=== PATIENT | female | born 1955 | race Caucasian/White ===

== ENCOUNTER 2016-05-19 12:48 | Emergency (ER) | payer BC, OTHER ==
[2016-05-19] MEDS ORDERED: predniSONE 20 MG Tab PO ONE (13:09)
[2016-05-19] MEDS ORDERED: Albuterol/Ipratropium 3.0-0.5 MG/3 ML Neb Soln NEB ONE (13:09)
--- NOTE | 2016-05-19 13:52 | CR ---
EXAMINATION: Two-view chest (PA and Lateral views). HISTORY: Shortness of breath. FINDINGS: The trachea is midline. The cardiomediastinal silhouette is within normal limits. No pulmonary infil trates, effusions or pneumothorax. There is a moderate hiatal hernia. Osseous structures appear unremarkable. IMPRESSION: No acute cardiopulmonary process.
--- NOTE | 2016-05-19 14:11 | EDM.PDOC ---
ED HISTORY OF PRESENT ILLNESS - General Chief Complaint: Respiratory Problem Stated Complaint: POSSIBLE PNEUMONIA Time Seen by Provider: 05/19/16 12:51 Source of Information: Reports: Patient History Limitations: Reports: No limitations - History of Present Illness INITIAL COMMENTS - FREE TEXT/NARRATIVE: History of present illness: [] Patient's head 2 week history of a cough it is not getting better. She has seen her primary care physician who put her on albuterol and a for antibiotic without any improvement. Patient states when she puts her neck forward she can' t breathe. Had no syncope denies any sore throat or fevers or chills. Review of systems: As per history of present illness and below otherwise all systems reviewed and negative. Past medical history: As per history of present illness and as reviewed below otherwise noncontributory. Surgical history: As per history of present illness and as reviewed below otherwise noncontributory. Social history: No reported history of drug or alcohol abuse. Family history: As per history of present illness and as reviewed below otherwise noncontributory. Physical exam: General: Well developed, well nourished in NAD HEENT: Atraumatic, normocephalic, pupils reactive, negative for conjunctival pallor or scleral icterus, mucous membranes moist, throat clear, neck supple, nontender, trachea midline. Lungs: Clear to auscultation, breath sounds equal bilaterally, chest nontender. Heart: S1S2, regular, negative for clicks, rubs, or JVD. Abdomen: Soft, nondistended, nontender. Negative for masses or hepatosplenomegaly. Negative for costovertebral tenderness. Pelvis: Stable nontender. Genitourinary: Deferred. Rectal: Deferred. Extremities: Atraumatic, negative for cords or calf pain. Neurovascular unremarkable. Neuro: Awake, alert, oriented. Cranial nerves II through XII unremarkable. Cerebellum unremarkable. Motor and sensory unremarkable throughout. Exam nonfocal. Diagnostics: [] Chest x-ray negative for known Therapeutics: [] DuoNeb given in the ED with improvement Impression: [] Bronchitis Plan: [] Combivent prednisone followup PMD Definitive disposition and diagnosis as appropriate pending reevaluation and review of above. - Related Data Allergies/ADRs: Allergies Allergy/AdvReac Type Severity Reaction Status Date / Time Penicillins Allergy Rash Verified 11/14/15 19:29 Some adhesives Allergy Itching Uncoded 11/14/15 19:29 Home Meds: Home Meds Insulin Detemir [Levemir] 1 injection SQ BID 03/27/14 [History] Insulin Lispro [HumaLOG] 1 injection SQ ASDIRECTED 03/27/14 [History] Levothyroxine [Synthroid] 50 mcg PO ACBREAKFAST 03/27/14 [History] Moexipril [Univasc] 15 mg PO BID 03/27/14 [History] amLODIPine [Norvasc] 10 mg PO ACBREAKFAST 03/27/14 [History] Calcium Citrate/Vitamin D3 [Citracal-Vit D 200 mg-250 Tab] 2 tab.chew PO DAILY 10/04/14 [History] Omeprazole [Prilosec] 1 tab PO DAILY 10/04/14 [History] Aspirin [[place] Aspirin] 81 mg PO DAILY 12/24/15 [History] Dulaglutide [Trulicity] 1.5 mg SUBCUT WEEKLY 12/24/15 [History] Empagliflozin [Jardiance] 25 mg PO DAILY 12/24/15 [History] Acetaminophen/HYDROcodone [[place] 325-5 MG] 1 tab PO Q4H PRN #30 tablet 12/27/15 [Rx] Ipratropium/Albuterol Sulfate [Combivent Respimat Inhal [place]] 4 gm IH ASDIRECTED PRN #1 aer.w.adap 05/19/16 [Rx] predniSONE [Prednisone] 40 mg PO DAILY #10 tablet 05/19/16 [Rx] Past Medical History HEENT History: Reports: Sinusitis Cardiovascular History: Reports: High cholesterol, Hypertension Respiratory History: Reports: Other (see below) Other Respiratory History: hx of bronchitis Gastrointestinal History: Reports: GERD Genitourinary History: Reports: None 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 Musculoskeletal History: Reports: Fracture, Osteoarthritis Other Musculoskeletal History: Severe to Left wrist with ORIF and fixator for extended time Neurological History: Reports: None, Neuropathy, diabetic Psychiatric History: Reports: None Endocrine/Metabolic History: Reports: Diabetes, type II, Hypothyroidism, Obesity /BMI 30+ Hematologic History: Reports: None Immunologic History: Reports: None Oncologic (Cancer) History: Reports: None Dermatologic History: Reports: None - Infectious Disease History Infectious Disease History: Reports: None - Past Surgical History Head Surgeries/Procedures: Reports: None HEENT Surgical History: Reports: Cataract surgery Other HEENT Surgeries/Procedures: Bilateral Cataracts with lens replacements GI Surgical History: Reports: Cholecystectomy, Colonoscopy Other GI Surgeries/Procedures: Open Katiana age 13 yrs Musculoskeletal Surgical History: Reports: Arthroscopic knee, Other (see below) Other Musculoskeletal Surgeries/Procedures:: ORIF Left Wrist, Left knee arthroscopy, bilateral Hammer toe repairs with hardware Social & Family History - Tobacco Use Smoking Status *Q: Current Every Day Smoker Years of Tobacco use: 20 Packs/Tins Daily: 0.5 - Caffeine Use Caffeine Use: Reports: Other - Alcohol Use Days Per Week of Alcohol Use: 0 - Recreational Drug Use Recreational Drug Use: No Drug Use in Last 12 Months: No ED ROS GENERAL - Review of Systems Review Of Systems: See Below (See history of present illness) ED EXAM, GENERAL - Physical Exam Exam: See Below (See history of present illness) Course - Vital Signs Last Recorded V/S: Last Vital Signs Temp 36.6 C 05/19/16 12:59 Pulse 84 05/19/16 12:59 Resp 18 05/19/16 12:59 BP 150/66 H 05/19/16 12:59 Pulse Ox 98 05/19/16 12:59 - Orders/Labs/Meds Orders: Active Orders 24 hr Category Date Time Status RT Aerosol Therapy [RC] ASDIRECTED Care 05/19/16 13:09 Active Meds: Medications Discontinued Medications Generic Name Dose Route Start Last Admin Trade Name Freq PRN Reason Stop Dose Admin Albuterol/Ipratropium 3 ml 05/19/16 13:09 05/19/16 13:18 Duoneb 3.0-0.5 Mg/3 Ml NEB 05/19/16 13:10 3 ml ONETIME ONE Administration Prednisone 60 mg 05/19/16 13:09 05/19/16 13:25 Prednisone PO 05/19/16 13:10 60 mg ONETIME ONE Administration Departure - Departure Time of Disposition: 14:10 Disposition: Home, Self-Care 01 Condition: good Clinical Impression: Bronchitis Forms: ED Department Discharge Additional Instructions: The following information is given to patients seen in the emergency department who are being discharged to home. This information is to outline your options for follow-up care. We provide all patients seen in our emergency department with a follow-up referral. The need for follow-up, as well as the timing and circumstances, are variable depending upon the specifics of your emergency department visit. If you don't have a primary care physician on staff, we will provide you with a referral. We always advise you to contact your personal physician following an emergency department visit to inform them of the circumstance of the visit and for follow-up with them and/or the need for any referrals to a consulting specialist. The emergency department will also refer you to a specialist when appropriate. This referral assures that you have the opportunity for follow-up care with a specialist. All of these measure are taken in an effort to provide you with optimal care, which includes your follow-up. Under all circumstances we always encourage you to contact your private physician who remains a resource for coordinating your care. When calling for follow-up care, please make the office aware that this follow-up is from your recent emergency room visit. If for any reason you are refused follow-up, please contact the [facility] Emergency Department at and asked to speak to the emergency department charge nurse. miranda Brady [facility] [address] [place] [id number] - My Orders Last 24 Hours: My Active Orders 05/19/16 13:09 RT Aerosol Therapy [RC] ASDIRECTED - Assessment/Plan Last 24 Hours: My Active Orders 05/19/16 13:09 RT Aerosol Therapy [RC] ASDIRECTED
[2016-05-19 14:28] VITALS: BP 138/66
== END 2016-05-19 14:23 | disposition home or self-care (01) ==
LOC: MW.ED 12:48
DX: J40 Bronchitis, not specified as acute or chronic (principal); E78.00 Pure hypercholesterolemia, unspecified; I10 Essential (primary) hypertension; K21.9 Gastro-esophageal reflux disease without esophagitis; M19.90 Unspecified osteoarthritis, unspecified site; E03.9 Hypothyroidism, unspecified; E66.9 Obesity, unspecified; E11.40 Type 2 diabetes mellitus with diabetic neuropathy, unspecified; F17.210 Nicotine dependence, cigarettes, uncomplicated; Z79.4 Long term (current) use of insulin; Z79.82 Long term (current) use of aspirin; Z79.899 Other long term (current) drug therapy; Z98.49 Cataract extraction status, unspecified eye; Z90.49 Acquired absence of other specified parts of digestive tract
CPT/HCPCS: 71020; 94664; 99283; A9270; 99284

== ENCOUNTER 2018-09-24 08:08 | Day surgery (SDC) | payer BC ==
[2018-09-24] MEDS ORDERED: Sodium Chloride 0.9% 1,000 ML IV ONE (08:19)
[2018-09-24] MEDS ORDERED: Glucagon,Human Recombinant 1 MG Vial IVPUSH ONE (08:20)
--- NOTE | 2018-09-24 08:23 | EDM.PDOC ---
ED HPI GENERAL MEDICAL PROBLEM - General Chief Complaint: ENT Problem Stated Complaint: THROAT COMPLAINT Time Seen by Provider: 09/24/18 08:13 - History of Present Illness INITIAL COMMENTS - FREE TEXT/NARRATIVE: HISTORY AND PHYSICAL: History of present illness: Patient is a 63-year-old white female presents with a concern of inability to swallow patient has had similar episodes in the past she states this began yesterday when she was eating chicken she states she did have one episode of emesis and thought it clear but is not been able tolerate any by mouth liquids or saliva since she states she's had similar symptoms in the past and had endoscopy approximately 3-5 years prior that was reported to be unremarkable. Review of systems: As per history of present illness and below otherwise all systems reviewed and negative. Past medical history: As per history of present illness and as reviewed below otherwise noncontributory. Surgical history: As per history of present illness and as reviewed below otherwise noncontributory. Social history: No reported history of drug or alcohol abuse. Family history: As per history of present illness and as reviewed below otherwise noncontributory. Physical exam: HEENT: Atraumatic, normocephalic, pupils reactive, negative for conjunctival pallor or scleral icterus, mucous membranes moist, throat clear, neck supple, nontender, trachea midline. Lungs: Clear to auscultation, breath sounds equal bilaterally, chest nontender. Heart: S1S2, regular, negative for clicks, rubs, or JVD. Abdomen: Soft, nondistended, nontender. Negative for masses or hepatosplenomegaly. Negative for costovertebral tenderness. Pelvis: Stable nontender. Genitourinary: Deferred. Rectal: Deferred. Extremities: Atraumatic, negative for cords or calf pain. Neurovascular unremarkable. Neuro: Awake, alert, oriented. Cranial nerves II through XII unremarkable. Cerebellum unremarkable. Motor and sensory unremarkable throughout. Exam nonfocal. Diagnostics: CBC CMP chest x-ray PT/INR Therapeutics: Saline 1 L bolus glucagon 1 mg IV Impression: #1 odynophagia probable food bolus Definitive disposition and diagnosis as appropriate pending reevaluation and review of above. Throat Pain Score (Numeric/FACES): 7 - Related Data Allergies Allergy/AdvReac Type Severity Reaction Status Date / Time Penicillins Allergy Rash Verified 11/14/15 19:29 Some adhesives Allergy Itching Uncoded 11/14/15 19:29 Home Meds: Home Meds Insulin Detemir [Levemir] 1 injection SQ BID 03/27/14 [History] Insulin Lispro [HumaLOG] 1 injection SQ ASDIRECTED 03/27/14 [History] Levothyroxine [Synthroid] 50 mcg PO ACBREAKFAST 03/27/14 [History] Moexipril [Univasc] 15 mg PO BID 03/27/14 [History] amLODIPine [Norvasc] 10 mg PO ACBREAKFAST 03/27/14 [History] Calcium Citrate/Vitamin D3 [Citracal-Vit D 200 mg-250 Tab] 2 tab.chew PO DAILY 10/04/14 [History] Omeprazole [Prilosec] 1 tab PO DAILY 10/04/14 [History] Aspirin [[place] Aspirin EC] 81 mg PO DAILY 12/24/15 [History] Dulaglutide [Trulicity] 1.5 mg SUBCUT WEEKLY 12/24/15 [History] Empagliflozin [Jardiance] 25 mg PO DAILY 12/24/15 [History] Acetaminophen/HYDROcodone [[place] 325-5 MG] 1 tab PO Q4H PRN #30 tablet 12/27/15 [Rx] Ipratropium/Albuterol Sulfate [Combivent Respimat Inhal [place]] 4 gm IH ASDIRECTED PRN #1 aer.w.adap 05/19/16 [Rx] predniSONE [Prednisone] 40 mg PO DAILY #10 tablet 05/19/16 [Rx] Past Medical History HEENT History: Reports: Sinusitis Cardiovascular History: Reports: High Cholesterol, Hypertension Respiratory History: Reports: Other (See Below) Other Respiratory History: hx of bronchitis Gastrointestinal History: Reports: GERD Genitourinary History: Reports: 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 Musculoskeletal History: Reports: Fracture, Osteoarthritis Other Musculoskeletal History: Severe to Left wrist with ORIF and fixator for extended time Neurological History: Reports: None, Neuropathy, Diabetic Psychiatric History: Reports: None Endocrine/Metabolic History: Reports: Diabetes, Type II, Hypothyroidism, Obesity /BMI 30+ Hematologic History: Reports: None Immunologic History: Reports: None Oncologic (Cancer) History: Reports: None Dermatologic History: Reports: None - Infectious Disease History Infectious Disease History: Reports: None - Past Surgical History Head Surgeries/Procedures: Reports: None HEENT Surgical History: Reports: Cataract Surgery GI Surgical History: Reports: Cholecystectomy, Colonoscopy Other GI Surgeries/Procedures: Open Katiana age 13 yrs Musculoskeletal Surgical History: Reports: Arthroscopic Knee, Other (See Below) Social & Family History - Caffeine Use Caffeine Use: Reports: Other ED ROS GENERAL - Review of Systems Review Of Systems: ROS reveals no pertinent complaints other than HPI. ED EXAM, GENERAL - Physical Exam Exam: See Below (See dictation) Course - Vital Signs Last Recorded V/S: Last Vital Signs Temp 36.0 C 09/24/18 08:18 Pulse 85 09/24/18 08:18 Resp 20 09/24/18 08:18 BP 134/77 09/24/18 08:18 Pulse Ox 97 09/24/18 08:18 - Orders/Labs/Meds Orders: Active Orders 24 hr Category Date Time Status Chest 1V Frontal [CR] Stat Exams 09/24/18 08:19 Ordered CBC WITH AUTO DIFF [HEME] Stat Lab 09/24/18 08:19 Ordered COMPREHENSIVE METABOLIC PN,CMP [CHEM] Stat Lab 09/24/18 08:19 Ordered INR,PT,PROTHROMBIN TIME [COAG] Stat Lab 09/24/18 08:19 Ordered Glucagon,Human Recombinant [GlucaGen] Med 09/24/18 08:20 Once 1 mg IVPUSH ONETIME ONE Sodium Chloride 0.9% [Normal Saline] 1,000 ml Med 09/24/18 08:19 Ordered IV STAT Departure - Departure Time of Disposition: 08:22 Disposition: Still A Patient 30 Condition: Good Clinical Impression: Odynophagia - Discharge Information Referrals: PCP,Unknown [Primary Care Provider] - - My Orders Last 24 Hours: My Active Orders 09/24/18 08:19 Chest 1V Frontal [CR] Stat CBC WITH AUTO DIFF [HEME] Stat COMPREHENSIVE METABOLIC PN,CMP [CHEM] Stat INR,PT,PROTHROMBIN TIME [COAG] Stat Sodium Chloride 0.9% [Normal Saline] 1,000 ml IV STAT 09/24/18 08:20 Glucagon,Human Recombinant [GlucaGen] 1 mg IVPUSH ONETIME ONE - Assessment/Plan Last 24 Hours: My Active Orders 09/24/18 08:19 Chest 1V Frontal [CR] Stat CBC WITH AUTO DIFF [HEME] Stat COMPREHENSIVE METABOLIC PN,CMP [CHEM] Stat INR,PT,PROTHROMBIN TIME [COAG] Stat Sodium Chloride 0.9% [Normal Saline] 1,000 ml IV STAT 09/24/18 08:20 Glucagon,Human Recombinant [GlucaGen] 1 mg IVPUSH ONETIME ONE
--- NOTE | 2018-09-24 08:42 | PCM.HP.2 ---
H&P History of Present Illness - General Date of Service: 09/24/18 Source of Information: Patient History Limitations: Reports: No Limitations - History of Present Illness Initial Comments - Free Text/Narative: Patient is a 63 year old female who presents with retrosternal burning, dysphagia, and vomiting. She has a history of intermittent dysphagia that has been getting worse. She had an EGD three years ago with Dr. Pino and was found to have a hiatal hernia. She doesn't take anything for reflux. She was eating chicken last night when it became stuck. She vomited and felt like she was able to get the food bolus out, however this morning she is having sternal chest pain with swallowing and cannot even swallow spit. She tried some water but vomited. Throat Pain Score (Numeric/FACES): 7 - Related Data Allergies/Adverse Reactions: Allergies Allergy/AdvReac Type Severity Reaction Status Date / Time Penicillins Allergy Rash Verified 11/14/15 19:29 Some adhesives Allergy Itching Uncoded 11/14/15 19:29 Home Medications: Home Meds Insulin Detemir [Levemir] 1 injection SQ BID 03/27/14 [History] Insulin Lispro [HumaLOG] 1 injection SQ ASDIRECTED 03/27/14 [History] Levothyroxine [Synthroid] 50 mcg PO ACBREAKFAST 03/27/14 [History] Moexipril [Univasc] 15 mg PO BID 03/27/14 [History] amLODIPine [Norvasc] 10 mg PO ACBREAKFAST 03/27/14 [History] Calcium Citrate/Vitamin D3 [Citracal-Vit D 200 mg-250 Tab] 2 tab.chew PO DAILY 10/04/14 [History] Omeprazole [Prilosec] 1 tab PO DAILY 10/04/14 [History] Aspirin [[place] Aspirin EC] 81 mg PO DAILY 12/24/15 [History] Dulaglutide [Trulicity] 1.5 mg SUBCUT WEEKLY 12/24/15 [History] Empagliflozin [Jardiance] 25 mg PO DAILY 12/24/15 [History] Acetaminophen/HYDROcodone [[place] 325-5 MG] 1 tab PO Q4H PRN #30 tablet 12/27/15 [Rx] Ipratropium/Albuterol Sulfate [Combivent Respimat Inhal [place]] 4 gm IH ASDIRECTED PRN #1 aer.w.adap 05/19/16 [Rx] predniSONE [Prednisone] 40 mg PO DAILY #10 tablet 05/19/16 [Rx] Past Medical History HEENT History: Reports: Sinusitis Cardiovascular History: Reports: High Cholesterol, Hypertension Respiratory History: Reports: Other (See Below) Other Respiratory History: hx of bronchitis Gastrointestinal History: Reports: GERD, Other (See Below) Other Gastrointestinal History: difficulty swallowing. 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 Musculoskeletal History: Reports: Fracture, Osteoarthritis Other Musculoskeletal History: Severe to Left wrist with ORIF and fixator for extended time Neurological History: Reports: None, Neuropathy, Diabetic Psychiatric History: Reports: None Endocrine/Metabolic History: Reports: Diabetes, Type II, Hypothyroidism, Obesity /BMI 30+ Hematologic History: Reports: B12 Deficiency, Iron Deficiency Immunologic History: Reports: None Oncologic (Cancer) History: Reports: None Dermatologic History: Reports: None - Infectious Disease History Infectious Disease History: Reports: None - Past Surgical History Head Surgeries/Procedures: Reports: None HEENT Surgical History: Reports: Cataract Surgery GI Surgical History: Reports: Cholecystectomy, Colonoscopy Other GI Surgeries/Procedures: Open Katiana age 13 yrs Musculoskeletal Surgical History: Reports: Arthroscopic Knee, Other (See Below) Social & Family History - Tobacco Use Smoking Status *Q: Light Tobacco Smoker Years of Tobacco use: 0 Packs/Tins Daily: 0 - Caffeine Use Caffeine Use: Reports: Other - Recreational Drug Use Recreational Drug Use: No H&P Review of Systems - Review of Systems: Review Of Systems: ROS reveals no pertinent complaints other than HPI. Exam - Exam Exam: See Below - Vital Signs Vital Signs: Last Vital Signs Temp 36.0 C 09/24/18 08:18 Pulse 85 09/24/18 08:18 Resp 20 09/24/18 08:18 BP 134/77 09/24/18 08:18 Pulse Ox 97 09/24/18 08:18 Weight: 113.398 kg - Exam Quality Assessment: Supplemental Oxygen General: Alert, Oriented, Mild Distress HEENT: Conjunctiva Clear, Mucosa Moist & [place], Posterior Pharynx Clear Neck: Supple, Trachea Midline Lungs: Clear to Auscultation, Normal Respiratory Effort Cardiovascular: Regular Rate, Regular Rhythm GI/Abdominal Exam: Soft, Non-Tender, No Distention, No Mass - Patient Data Lab Results Last 24 hrs: Laboratory Results - last 24 hr 09/24/18 Range/Units 08:34 POC Glucose 78 (60-110) mg/dL - Problem List (1) Hiatal hernia SNOMED Code(s): 66638948 ICD Code: K44.9 - DIAPHRAGMATIC HERNIA WITHOUT OBSTRUCTION OR GANGRENE Status: Acute Current Visit: Yes (2) Esophageal obstruction due to food impaction SNOMED Code(s): 177999992 ICD Code: K22.2 - ESOPHAGEAL OBSTRUCTION; T18.128A - FOOD IN ESOPHAGUS CAUSING OTHER INJURY, INITIAL ENCOUNTER Status: Acute Current Visit: Yes Problem List Initiated/Reviewed/Updated: Yes Orders Last 24hrs: Active Orders 24 hr Category Date Time Status Chest 1V Frontal [CR] Stat Exams 09/24/18 08:19 Ordered CBC WITH AUTO DIFF [HEME] Stat Lab 09/24/18 08:19 Ordered COMPREHENSIVE METABOLIC PN,CMP [CHEM] Stat Lab 09/24/18 08:19 Ordered INR,PT,PROTHROMBIN TIME [COAG] Stat Lab 09/24/18 08:19 Ordered Sodium Chloride 0.9% [Normal Saline] 1,000 ml Med 09/24/18 08:19 Active IV STAT Medication Orders Sodium Chloride (Normal Saline) 1,000 mls @ 999 mls/hr IV STAT ONE Stop: 09/24/18 09:19 Last Admin: 09/24/18 08:34 Dose: 999 mls/hr Assessment/Plan Comment:: Given her inability to swallow saliva I am concerned that she has a food bolus impaction. She has a history of a hiatal hernia and likely has GERD with esophagitis which is likely narrowing the area. I explained the need for a diagnostic EGD with food bolus extraction. She and I discussed the expected perioperative course as well as the risks including bleeding or perforation. She verbalized understanding and wishes to proceed.
[2018-09-24] MEDS ORDERED: Sodium Chloride 0.9% 2.5 ML Syringe FLUSH PRN (08:51)
[2018-09-24] MEDS ORDERED: Sodium Chloride 0.9% 10 ML SDV IV PRN (08:51)
[2018-09-24] MEDS ORDERED: Sodium Chloride 0.9% 10 ML Syringe FLUSH PRN (08:51)
[2018-09-24] MEDS ORDERED: Lidocaine 2% 5 ML SDV ONE (08:54)
[2018-09-24] MEDS ORDERED: Ondansetron 4 MG/2 ML SDV ONE (08:54)
[2018-09-24] MEDS ORDERED: Rocuronium 100 MG/10 ML Syringe ONE (08:55)
[2018-09-24] MEDS ORDERED: Propofol 200 MG/20 ML SDV ONE (08:55)
[2018-09-24] MEDS ORDERED: Midazolam 1 MG/ML 2 ML SDV ONE (08:55)
[2018-09-24] MEDS ORDERED: fentaNYL 250 MCG/5 ML SDV ONE (08:55)
[2018-09-24] MEDS ORDERED: Lactated Ringers 1,000 ML IV SCH (09:00)
--- NOTE | 2018-09-24 09:02 | PCM.PREANE ---
Preanesthetic Assessment - Anesthesia/Transfusion/Family Hx Anesthesia History: Prior Anesthesia Without Reaction Other Type of Anesthesia Reaction Comment: Denies any known problem in past Family History of Anesthesia Reaction: No Transfusion History: No Prior Transfusion(s) - Review of Systems General: No Symptoms Pulmonary: No Symptoms Cardiovascular: No Symptoms Gastrointestinal: No Symptoms Neurological: No Symptoms Other: Reports: None - Physical Assessment Vital Signs: Last Vital Signs Temp 96.8 F 09/24/18 08:18 Pulse 85 09/24/18 08:18 Resp 20 09/24/18 08:18 BP 134/77 09/24/18 08:18 Pulse Ox 97 09/24/18 08:18 Height: 5 ft 6 in Weight: 113.398 kg ASA Class: 2E Mental Status: Alert & Oriented x3 Airway Class: Mallampati = 2 Dentition: Reports: Normal Dentition, Missing Tooth/Teeth Thyro-Mental Finger Breadths: 3 Mouth Opening Finger Breadths: 3 ROM/Head Extension: Limited/Partial Lungs: Clear to Auscultation, Normal Respiratory Effort Cardiovascular: Regular Rate, Regular Rhythm - Lab Values: Laboratory Last Values WBC 7.52 K/uL (4.0-11.0) 09/24/18 08:37 RBC 5.18 M/uL (4.30-5.90) 09/24/18 08:37 Hgb 13.8 g/dL (12.0-16.0) 09/24/18 08:37 Hct 43.0 % (36.0-46.0) 09/24/18 08:37 MCV 83.0 fL (80.0-98.0) 09/24/18 08:37 MCH 26.6 pg (27.0-32.0) L 09/24/18 08:37 MCHC 32.1 g/dL (31.0-37.0) 09/24/18 08:37 RDW Std Deviation 46.8 fl (28.0-62.0) 09/24/18 08:37 RDW Coeff of Suhas 16 % (11.0-15.0) H 09/24/18 08:37 Plt Count 324 K/uL (150-400) 09/24/18 08:37 MPV 9.20 fL (7.40-12.00) 09/24/18 08:37 Neut % (Auto) 70.4 % (48.0-80.0) 09/24/18 08:37 Lymph % (Auto) 19.0 % (16.0-40.0) 09/24/18 08:37 [place] % (Auto) 8.9 % (0.0-15.0) 09/24/18 08:37 Eos % (Auto) 1.3 % (0.0-7.0) 09/24/18 08:37 Baso % (Auto) 0.4 % (0.0-1.5) 09/24/18 08:37 Neut # (Auto) 5.3 K/uL (1.4-5.7) 09/24/18 08:37 Lymph # (Auto) 1.4 K/uL (0.6-2.4) 09/24/18 08:37 Dillon # (Auto) 0.7 K/uL (0.0-0.8) 09/24/18 08:37 Eos # (Auto) 0.1 K/uL (0.0-0.7) 09/24/18 08:37 Baso # (Auto) 0.0 K/uL (0.0-0.1) 09/24/18 08:37 Nucleated RBC % 0.0 /100WBC 09/24/18 08:37 Nucleated RBCs # 0 K/uL 09/24/18 08:37 POC Glucose 78 mg/dL (60-110) 09/24/18 08:34 - Allergies Allergies/Adverse Reactions: Allergies Allergy/AdvReac Type Severity Reaction Status Date / Time Penicillins Allergy Rash Verified 11/14/15 19:29 Some adhesives Allergy Itching Uncoded 11/14/15 19:29 - Acknowledgements Anesthesia Type Planned: General Anesthesia Pt an Appropriate Candidate for the Planned Anesthesia: Yes Alternatives and Risks of Anesthesia Discussed w Pt/Guardian: Yes Pt/Guardian Understands and Agrees with Anesthesia Plan: Yes PreAnesthesia Questionnaire HEENT History: Reports: Sinusitis Cardiovascular History: Reports: High Cholesterol, Hypertension Respiratory History: Reports: Other (See Below) Other Respiratory History: hx of bronchitis Gastrointestinal History: Reports: GERD, Other (See Below) Other Gastrointestinal History: difficulty swallowing. pt with previous scope Genitourinary History: Reports: None [employer] History: Reports: None Musculoskeletal History: Reports: Fracture, Osteoarthritis Other Musculoskeletal History: Severe to Left wrist with ORIF and fixator for extended time Neurological History: Reports: None, Neuropathy, Diabetic Psychiatric History: Reports: None Endocrine/Metabolic History: Reports: Diabetes, Type II (Requiring insulin), Hypothyroidism, Obesity/BMI 30+ Hematologic History: Reports: B12 Deficiency, Iron Deficiency Immunologic History: Reports: None Oncologic (Cancer) History: Reports: None Dermatologic History: Reports: None - Infectious Disease History Infectious Disease History: Reports: None - Past Surgical History Head Surgeries/Procedures: Reports: None HEENT Surgical History: Reports: Cataract Surgery GI Surgical History: Reports: Cholecystectomy, Colonoscopy Other GI Surgeries/Procedures: Open Katiana age 13 yrs Musculoskeletal Surgical History: Reports: Arthroscopic Knee, Other (See Below) - SUBSTANCE USE Smoking Status *Q: Light Tobacco Smoker Tobacco Use Within Last Twelve Months: Cigarettes Recreational Drug Use History: No - HOME MEDS Home Medications: Home Meds Insulin Detemir [Levemir] 1 injection SQ BID 03/27/14 [History] Insulin Lispro [HumaLOG] 1 injection SQ ASDIRECTED 03/27/14 [History] Levothyroxine [Synthroid] 50 mcg PO ACBREAKFAST 03/27/14 [History] Moexipril [Univasc] 15 mg PO BID 03/27/14 [History] amLODIPine [Norvasc] 10 mg PO ACBREAKFAST 03/27/14 [History] Calcium Citrate/Vitamin D3 [Citracal-Vit D 200 mg-250 Tab] 2 tab.chew PO DAILY 10/04/14 [History] Omeprazole [Prilosec] 1 tab PO DAILY 10/04/14 [History] Aspirin [Falls Aspirin EC] 81 mg PO DAILY 12/24/15 [History] Dulaglutide [Trulicity] 1.5 mg SUBCUT WEEKLY 12/24/15 [History] Empagliflozin [Jardiance] 25 mg PO DAILY 12/24/15 [History] Acetaminophen/HYDROcodone [[place] 325-5 MG] 1 tab PO Q4H PRN #30 tablet 12/27/15 [Rx] Ipratropium/Albuterol Sulfate [Combivent Respimat Inhal [place]] 4 gm IH ASDIRECTED PRN #1 aer.w.adap 05/19/16 [Rx] predniSONE [Prednisone] 40 mg PO DAILY #10 tablet 05/19/16 [Rx] - CURRENT (IN HOUSE) MEDS Current Meds: Current Medications Sodium Chloride (Normal Saline) 1,000 mls @ 999 mls/hr IV STAT ONE Stop: 09/24/18 09:19 Last Admin: 09/24/18 08:34 Dose: 999 mls/hr Lactated Ringer's (Ringers, Lactated) 1,000 mls @ 125 mls/hr IV ASDIRECTED JANELLE Sodium Chloride (Saline Flush) 10 ml FLUSH ASDIRECTED PRN PRN Reason: Keep Vein Open Sodium Chloride (Saline Flush) 2.5 ml FLUSH ASDIRECTED PRN PRN Reason: Keep Vein Open Sodium Chloride (Normal Saline) 10 ml IV ASDIRECTED PRN PRN Reason: IV Use Discontinued Medications Fentanyl (Sublimaze) Confirm Administered Dose 250 mcg .ROUTE .STK-MED ONE Stop: 09/24/18 08:56 Glucagon (Glucagen) 1 mg IVPUSH ONETIME ONE Stop: 09/24/18 08:21 Last Admin: 09/24/18 08:34 Dose: Not Given Lidocaine (Xylocaine-Mpf 2%) Confirm Administered Dose 5 ml .ROUTE .STK-MED ONE Stop: 09/24/18 08:55 Midazolam HCl (Versed 1 Mg/Ml) Confirm Administered Dose 2 mg .ROUTE .STK-MED ONE Stop: 09/24/18 08:56 Ondansetron HCl (Zofran) Confirm Administered Dose 4 mg .ROUTE .STK-MED ONE Stop: 09/24/18 08:55 Propofol (Diprivan 20 Ml) Confirm Administered Dose 200 mg .ROUTE .STK-MED ONE Stop: 09/24/18 08:56 Rocuronium [place] (Zemuron) Confirm Administered Dose 100 mg .ROUTE .STK-MED ONE Stop: 09/24/18 08:56 Succinylcholine Chloride (Succinylcholine Chloride) Confirm Administered Dose 200 mg .ROUTE .STK-MED ONE Stop: 09/24/18 08:56
[2018-09-24] MEDS ORDERED: Sodium Chloride 0.9% 20 ML ONE (09:04)
[2018-09-24] MEDS ORDERED: ePHEDrine 50 MG/ML SDV ONE (09:04)
[2018-09-24 09:10] LABS: CHLORIDE,CL 104 mmol/L (98-107); SODIUM,NA 143 mmol/L (136-145)
[2018-09-24] MEDS ORDERED: Glycopyrrolate 0.2 MG/ML SDV ONE (09:28)
[2018-09-24] MEDS ORDERED: Albuterol 0.083% 2.5 MG/3 ML Neb Soln NEB PRN (09:43)
[2018-09-24] MEDS ORDERED: EPINEPHrine 1:10,000 1 MG/10 ML Syringe IVPUSH PRN (09:43)
[2018-09-24] MEDS ORDERED: Atropine 0.1 MG/ML 10 ML Syringe IVPUSH PRN ×2 (09:43)
[2018-09-24] MEDS ORDERED: fentaNYL 100 MCG/2 ML SDV IVPUSH PRN (09:43)
[2018-09-24] MEDS ORDERED: 50% Dextrose in Water 50 ML Syringe IVPUSH PRN (09:43)
[2018-09-24] MEDS ORDERED: Naloxone 0.4 MG/ML Syringe IVPUSH PRN (09:43)
--- NOTE | 2018-09-24 09:44 | PCM.OPNOTE ---
- General Post-Op/Procedure Note Date of Surgery/Procedure: 09/24/18 Operative Procedure(s): Diagnostic EGD with food bolus disimpaction Findings: Hiatal hernia with narrowing at the GE junction. Piece of chicken stuck at this level. Pre Op Diagnosis: Food bolus obstruction, hiatal hernia Post-Op Diagnosis: same Anesthesia Technique: General ET Tube Primary Surgeon: Loni Shin Condition: Good
--- NOTE | 2018-09-24 09:56 | PCM.POSTAN ---
POST ANESTHESIA ASSESSMENT - MENTAL STATUS Mental Status: Alert, Oriented - VITAL SIGNS Vital Signs: Last Vital Signs Temp 98.1 F 09/24/18 09:39 Pulse 104 H 09/24/18 09:44 Resp 13 09/24/18 09:44 BP 133/69 09/24/18 09:44 Pulse Ox 100 09/24/18 09:44 - RESPIRATORY Respiratory Status: Respiratory Rate WNL, Airway Patent, O2 Saturation Stable - CARDIOVASCULAR CV Status: Pulse Rate WNL, Blood Pressure Stable - GASTROINTESTINAL GI Status: No Symptoms - PAIN Pain Score: 0 - POST OP HYDRATION Hydration Status: Adequate & Stable - OBSERVATIONS Free Text/Narrative:: Alert and oriented, talking with Dr Shin at this time regarding follow-up care.
[2018-09-24] MEDS ORDERED: Pantoprazole 40 MG Tab.CR PO SCH (10:00)
--- NOTE | 2018-09-24 12:01 | PCM48HPAN ---
Post Anesthesia Note - EVALUATION WITHIN 48HRS OF ANESTHETIC Vital Signs in Normal Range: Yes Patient Participated in Evaluation: Yes Respiratory Function Stable: Yes Airway Patent: Yes Cardiovascular Function Stable: Yes Hydration Status Stable: Yes Pain Control Satisfactory: Yes Nausea and Vomiting Control Satisfactory: Yes Mental Status Recovered: Yes Vital Signs: Last Vital Signs Temp 96.4 F 09/24/18 10:15 Pulse 84 09/24/18 11:00 Resp 16 09/24/18 11:00 BP 107/42 L 09/24/18 11:00 Pulse Ox 95 09/24/18 11:00
[2018-09-24 13:56] VITALS: BP 116/76
--- NOTE | 2018-09-25 19:22 | OR ---
SURGEON: LONI SHIN MD DATE OF PROCEDURE: 09/24/2018 PREOPERATIVE DIAGNOSES: 1. Hiatal hernia. 2. Esophageal obstruction due to food bolus. POSTOPERATIVE DIAGNOSES: 1. Hiatal hernia. 2. Esophageal obstruction due to food bolus. PROCEDURE PERFORMED: Diagnostic EGD with food bolus disimpaction. PRIMARY SURGEON: Loni Shin MD ANESTHESIA: General endotracheal anesthesia. FLUIDS: 1000 mL of crystalloid. INSTRUMENT USED: Olympus endoscope. EXTENT OF EXAM: To the second portion of duodenum. COMPLICATIONS: None. INDICATIONS: The patient is a 63-year-old female who with a past medical history significant for dysphagia and hiatal hernia. Last night, she was eating chicken when she felt to get stuck. She vomited and felt that the food bolus was disimpacted. However, this morning, she was having retrosternal chest pain with swallowing and unable to swallow saliva. The decision was made to perform a diagnostic EGD with food bolus disimpaction. I explained the procedure, expected perioperative course, and risks including bleeding or perforation. The patient verbalized understanding and wishes to proceed. PROCEDURE IN DETAIL: The patient was brought into the OR on the OR cart and placed in supine position. A time-out was completed verifying the patient's name, age, date of , allergies, and procedure to be performed. General endotracheal anesthesia was induced. The patient was then placed in a beach chair position. A bite block was placed in the patient's mouth. A well lubricated endoscope was placed in the patient's mouth and advanced under direct visualization into the esophagus. At 35 cm, the patient was noted to have a large food bolus, which was obstructing the esophagus. I attempted to flush this down as well as advanced the food bolus with pressure from my endoscope. Neither of these techniques worked. A [employer] was brought into the field. It was used to break up and remove the food bolus. Eventually, I was able to grasp the main body of the impacted meat and remove it completely. The scope was then advanced through the stomach to the second portion of duodenum. The second portion of duodenum appeared normal and a photograph was taken. The scope was then fully withdrawn while examining the color, texture, anatomy, and integrity of the mucosa of the upper GI tract. The patient's stomach appeared to be mildly inflamed. With the scope in the retroflexed position, I was able to see that she has a [id number]-sized hiatal hernia. A photograph of this was taken. The scope was brought into the distal esophagus. 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 A photograph was taken. The remainder of the esophagus appeared normal. The scope was removed and the procedure terminated. The patient was transferred to the PACU in stable condition. ENDOSCOPIC DIAGNOSES: Food bolus obstruction of the esophagus, hiatal hernia. RECOMMENDATIONS: We will discharge the patient today. We will start her on PPI therapy. Liquid diet for 1 week. We will follow up in clinic in 2 weeks. NEGRO MCKEON /[id number]
== END 2018-09-24 12:32 | disposition home or self-care (01) ==
LOC: MW.ED 08:08 → MW.SDS 08:25 → MW.ICU 08:51 → MW.SDS 12:32
PROVIDERS: ATTEND Surgery
DX: T18.128A Food in esophagus causing other injury, initial encounter (principal); K44.9 Diaphragmatic hernia without obstruction or gangrene; E78.00 Pure hypercholesterolemia, unspecified; I10 Essential (primary) hypertension; K21.9 Gastro-esophageal reflux disease without esophagitis; M19.90 Unspecified osteoarthritis, unspecified site; E11.40 Type 2 diabetes mellitus with diabetic neuropathy, unspecified; E03.9 Hypothyroidism, unspecified; F17.200 Nicotine dependence, unspecified, uncomplicated; E66.9 Obesity, unspecified; Z68.41 Body mass index [BMI] 40.0-44.9, adult; Z88.0 Allergy status to penicillin; Z91.048 Other nonmedicinal substance allergy status; Z79.4 Long term (current) use of insulin; Z79.899 Other long term (current) drug therapy; Z79.82 Long term (current) use of aspirin
CPT/HCPCS: 36415; 43247; 80053; 82962; 85025; 85610; 96360; 99284; A9270; J0330; J2001; J2250; J2405; J2704; J3010; J3490; J7040; 99283

== ENCOUNTER 2021-01-15 11:11 | Emergency (ER) | payer MEDICARE, BC ==
[2021-01-15] MEDS ORDERED: Ketorolac 30 MG/ML SDV IVPUSH ONE (11:57)
[2021-01-15] MEDS ORDERED: Ondansetron 4 MG/2 ML SDV IVPUSH ONE ×2 (11:57→13:29)
[2021-01-15] MEDS ORDERED: HYDROmorphone 1 MG/ML Syringe IVPUSH ONE (11:57)
[2021-01-15] MEDS ORDERED: Sodium Chloride 0.9% 10 ML Syringe FLUSH PRN (11:57)
[2021-01-15] MEDS ORDERED: Sodium Chloride 0.9% 2.5 ML Syringe FLUSH PRN (11:57)
--- NOTE | 2021-01-15 12:07 | EDM.PDOC ---
ED HPI GENERAL MEDICAL PROBLEM - General Chief Complaint: Upper Extremity Injury/Pain Stated Complaint: FELL, HURT ARM Time Seen by Provider: 01/15/21 11:30 Source of Information: Reports: Patient History Limitations: Reports: No Limitations - History of Present Illness INITIAL COMMENTS - FREE TEXT/NARRATIVE: HISTORY AND PHYSICAL: History of present illness: Patient is a 65-year-old female who presents emergency room today with concern of left arm injury that occurred just prior to arrival to the emergency room. Patient states that she was walking into the grocery store when the mat that was at the entrance was partially lifted. Patient states she caught her foot under the mat and fell forward and landed directly on her left arm. Patient states that she did not hit her head or lose consciousness. Patient states that she has had prior wrist surgery on her left arm. Patient states she has mostly having pain of her upper arm but is having some discomfort of her lower arm as well. She denies any preceding dizziness, lightheadedness or any other resuscitative symptoms. Patient denies fever, chills, chest pain, shortness of breath, or cough. Denies headache, neck stiff ness, change in vision, syncope, or near syncope. Denies nausea, vomiting, abdominal pain, diarrhea, constipation, or dysuria. Has not noted any blood in urine or stool. Patient has been eating and drinking appropriately. Review of systems: As per history of present illness and below otherwise all systems reviewed and negative. Past medical history: As per history of present illness and as reviewed below otherwise noncontributory. Surgical history: As per history of present illness and as reviewed below otherwise noncontributory. Social history: See social history for further information Family history: As per history of present illness and as reviewed below otherwise noncontributory. Physical exam: General: Patient is alert, oriented, and in no acute distress. Patient sitting comfortably on exam table. Vitals stable and reviewed by me. HEENT: Atraumatic, normocephalic, pupils equal and reactive bilaterally, negative for conjunctival pallor or scleral icterus, mucous membranes moist, throat clear, neck supple, nontender, trachea midline. No drooling or trismus noted. No meningeal signs. No hot potato voice noted. Lungs: Clear to auscultation, breath sounds equal bilaterally, chest nontender. Heart: S1S2, regular rate and rhythm without overt murmur Abdomen: Soft, nondistended, nontender. Negative for masses or hepatosplenomegaly. Negative for costovertebral tenderness. Pelvis: Stable nontender. Genitourinary: Deferred. Rectal: Deferred. Skin: Intact, warm, dry. No lesions or rashes noted. Extremities: Patient does have significant pain of her left mid humeral and proximal humerus with limited range of motion of the left shoulder and elbow due to pain. Patient does have some mild edema of the biceps area without ecchymosis of the affected extremity. Patient does have full range of motion of the left wrist and digits but does have some mild discomfort of the mid forearm. Radial pulses grossly intact of the left upper extremity with capillary refill less than 2 seconds. All compartments are soft of the left upper extremity. Otherwise, atraumatic, negative for cords or calf pain. Neurovascular unremarkable. Neuro: Awake, alert, oriented. Cranial nerves II through XII unremarkable. Cerebellum unremarkable. Motor and sensory unremarkable throughout. Exam nonfocal. Medical Decision Making: Patient does get nauseous from the pain medication and provided with additional nausea medication here in the ED. Following additional nausea medication, she has improvement of her symptoms. Strict return precautions thoroughly discussed with patient. Discussed importance for follow-up with a primary care provider. Voices understanding and is agreeable to plan of care. Denies any further questions or concerns at this time. Diagnostics: Humerus, forearm, left Therapeutics: Dilaudid, Zofran, Toradol, promethazine, morphine Prescription: Percocet (#24), Narcan, Zofran Impression: Proximal humerus fracture, left Plan: 1. Rest, ice, elevate the affected extremity. You can apply ice 15 minutes on, 15 minutes off. Keep the shoulder immobilizer on until follow up with the orthopedic provider. 2. Tylenol and/or Ibuprofen as directed for pain management or discomfort. Take medication as prescribed. Your medication has been sent to [facility]. Caution when taking Percocet as this medication does cause drowsiness and sedation. Do not take this medication and operate any vehicles or heavy equipment. Caution when on this medication outside of the home. This medication does have the risk for increased falls. Make sure that you are moving slowly while taking this medication and take fall precaution as discussed. Percocet also contains Tylenol (Acetaminophen) so caution when taking additional Tylenol medication as be sure to take the dosing and did not further consideration as discussed. 3. Follow up with the Orthopedic provider as discussed. The number has been provided above for you to call and establish an appointment time. I encourage you to call today to set up a close follow-up with the orthopedic provider. Return to the ED as needed and as discussed. Definitive disposition and diagnosis as appropriate pending reevaluation and review of above. Left Arm Pain Score (Numeric/FACES): 8 - Related Data Allergies Allergy/AdvReac Type Severity Reaction Status Date / Time Penicillins Allergy Rash Verified 01/15/21 11:53 Some adhesives Allergy Itching Uncoded 01/15/21 11:53 Home Meds: Home Meds Insulin Detemir [Levemir] 1 injection SQ BID 03/27/14 [History] Insulin Lispro [HumaLOG] 1 injection SQ ASDIRECTED 03/27/14 [History] Levothyroxine [Synthroid] 50 mcg PO ACBREAKFAST 03/27/14 [History] Moexipril [Univasc] 15 mg PO BID 03/27/14 [History] amLODIPine [Norvasc] 10 mg PO ACBREAKFAST 03/27/14 [History] Calcium Citrate/Vitamin D3 [Citracal-D3 200Mg-250 Unit Tab] 2 tab.chew PO DAILY 10/04/14 [History] Aspirin [[place] Aspirin EC] 81 mg PO DAILY 12/24/15 [History] Dulaglutide [Trulicity] 1.5 mg SUBCUT WEEKLY 12/24/15 [History] Empagliflozin [Jardiance] 25 mg PO DAILY 12/24/15 [History] Acetaminophen/HYDROcodone [Hext 325-5 MG] 1 tab PO Q4H PRN #30 tablet 12/27/15 [Rx] Ipratropium/Albuterol Sulfate [Combivent Respimat 20-100 Mcg] 4 gm IH ASDIRECTED PRN #1 aer.w.adap 05/19/16 [Rx] predniSONE [Prednisone] 40 mg PO DAILY #10 tablet 05/19/16 [Rx] Pantoprazole [ProTONIX] 40 mg PO DAILY #30 tab.cr 09/24/18 [Rx] Naloxone HCl [Narcan] 4 mg NS ONETIME PRN #1 applic 01/15/21 [Rx] Ondansetron [Zofran ODT] 4 mg PO Q6H PRN #8 tab.dis 01/15/21 [Rx] oxyCODONE HCl/Acetaminophen [Oxycodone-Acetaminophen 5-325] 1 each PO Q6H PRN #24 tablet 01/15/21 [Rx] Past Medical History HEENT History: Reports: Sinusitis Cardiovascular History: Reports: High Cholesterol, Hypertension Respiratory History: Reports: Other (See Below) Other Respiratory History: hx of bronchitis Gastrointestinal History: Reports: GERD, Other (See Below) Other Gastrointestinal History: difficulty swallowing. pt with previous scope Genitourinary History: Reports: None ARTIST REPRESENTATIVE History: Reports: None Musculoskeletal History: Reports: Fracture, Osteoarthritis Other Musculoskeletal History: Severe to Left wrist with ORIF and fixator for extended time Neurological History: Reports: None, Neuropathy, Diabetic Psychiatric History: Reports: None Endocrine/Metabolic History: Reports: Diabetes, Type II, Hypothyroidism, Obesity/BMI 30+ Hematologic History: Reports: B12 Deficiency, Iron Deficiency Immunologic History: Reports: None Oncologic (Cancer) History: Reports: None Dermatologic History: Reports: None - Infectious Disease History Infectious Disease History: Reports: None - Past Surgical History Head Surgeries/Procedures: Reports: None HEENT Surgical History: Reports: Cataract Surgery Other HEENT Surgeries/Procedures: Bilateral Cataracts with lens replacements GI Surgical History: Reports: Cholecystectomy, Colonoscopy Other GI Surgeries/Procedures: Open Katiana age 13 yrs Musculoskeletal Surgical History: Reports: Arthroscopic Knee, Other (See Below) Other Musculoskeletal Surgeries/Procedures:: ORIF Left Wrist, Left knee arthroscopy, bilateral Hammer toe repairs with hardware Social & Family History - Tobacco Use Second Hand Smoke Exposure: No - Caffeine Use Caffeine Use: Reports: None - Recreational Drug Use Recreational Drug Use: No Review of Systems - Review of Systems Review Of Systems: Comprehensive ROS is negative, except as noted in HPI. ED EXAM, GENERAL - Physical Exam Exam: See Below (see dictation) Course - Vital Signs Last Recorded V/S: Last Vital Signs Temp 97.5 F 01/15/21 11:49 Pulse 71 01/15/21 12:44 Resp 18 01/15/21 12:44 BP 155/59 H 01/15/21 11:49 Pulse Ox 96 01/15/21 12:44 - Orders/Labs/Meds Orders: Active Orders 24 hr Category Date Time Status Sodium Chloride 0.9% [Saline Flush] Med 12/08/21 11:57 Active 10 ml FLUSH ASDIRECTED PRN Sodium Chloride 0.9% [Saline Flush] Med 01/15/21 11:57 Active 2.5 ml FLUSH ASDIRECTED PRN DME for Discharge [COMM] Stat Ot 01/15/21 12:46 Ordered Saline Lock Insert [OM.PC] Stat Ot 01/15/21 11:57 Ordered Medication Orders Sodium Chloride (Sodium Chloride 0.9% 10 Ml Syringe) 10 ml FLUSH ASDIRECTED PRN PRN Reason: Keep Vein Open Last Admin: 01/15/21 12:36 Dose: 10 ml Documented by: CRYSTAL Sodium Chloride (Sodium Chloride 0.9% 2.5 Ml Syringe) 2.5 ml FLUSH ASDIRECTED PRN PRN Reason: Keep Vein Open Last Admin: 01/15/21 12:36 Dose: 2.5 ml Documented by: CRYSTAL Meds: Medications Generic Name Dose Route Start Last Admin Trade Name Freq PRN Reason Stop Dose Admin Sodium Chloride 10 ml 01/15/21 11:57 01/15/21 12:36 Sodium Chloride 0.9% 10 Ml Syringe FLUSH 10 ml ASDIRECTED PRN Administration Keep Vein Open Sodium Chloride 2.5 ml 01/15/21 11:57 01/15/21 12:36 Sodium Chloride 0.9% 2.5 Ml Syringe FLUSH 2.5 ml ASDIRECTED PRN Administration Keep Vein Open Discontinued Medications Generic Name Dose Route Start Last Admin Trade Name Freq PRN Reason Stop Dose Admin Hydromorphone HCl 1 mg 01/15/21 11:57 01/15/21 12:36 Hydromorphone 1 Mg/Ml Syringe IVPUSH 01/15/21 11:58 1 mg ONETIME ONE Administration Ketorolac Tromethamine 30 mg 01/15/21 11:57 01/15/21 12:36 Ketorolac 30 Mg/Ml Sdv IVPUSH 01/15/21 11:58 30 mg ONETIME ONE Administration Morphine Sulfate 2 mg 01/15/21 14:13 01/15/21 14:48 Morphine 2 Mg/Ml Syringe IVPUSH 01/15/21 14:14 2 mg ONETIME ONE Administration Ondansetron HCl 4 mg 01/15/21 11:57 01/15/21 12:36 Ondansetron 4 Mg/2 Ml Sdv IVPUSH 01/15/21 11:58 4 mg ONETIME ONE Administration Ondansetron HCl 4 mg 01/15/21 13:29 01/15/21 13:35 Ondansetron 4 Mg/2 Ml Sdv IVPUSH 01/15/21 13:30 4 mg ONETIME ONE Administration Ondansetron HCl Confirm 01/15/21 13:29 01/15/21 13:35 Ondansetron 4 Mg/2 Ml Sdv Administered 01/15/21 13:30 Not Given Dose 4 mg .ROUTE .STK-MED ONE Promethazine HCl 25 mg 01/15/21 14:13 01/15/21 14:48 Promethazine 25 Mg/Ml Sdv IM 01/15/21 14:14 25 mg ONETIME ONE Administration Departure - Departure Time of Disposition: 12:54 Disposition: Home, Self-Care 01 Clinical Impression: Proximal humerus fracture - Discharge Information Prescriptions: Naloxone HCl [Narcan] 4 mg NS ONETIME PRN #1 applic PRN Reason: Oversedation oxyCODONE HCl/Acetaminophen [Oxycodone-Acetaminophen 5-325] 1 each PO Q6H PRN #24 tablet PRN Reason: Pain (Severe 7-10) Ondansetron [Zofran ODT] 4 mg PO Q6H PRN #8 tab.dis PRN Reason: Nausea/Vomiting Instructions: Humerus Fracture Treated With Immobilization, Gycy-yp-Rtep, Humerus Fracture Treated With Immobilization Referrals: PCP,None [Primary Care Provider] - Forms: ED Department Discharge Additional Instructions: The following information is given to patients seen in the emergency department who are being discharged to home. This information is to outline your options for follow-up care. We provide all patients seen in our emergency department with a follow-up referral. The need for follow-up, as well as the timing and circumstances, are variable depending upon the specifics of your emergency department visit. If you don't have a primary care physician on staff, we will provide you with a referral. We always advise you to contact your personal physician following an emergency department visit to inform them of the circumstance of the visit and for follow-up with them and/or the need for any referrals to a consulting specialist. The emergency department will also refer you to a specialist when appropriate. This referral assures that you have the opportunity for follow-up care with a specialist. All of these measure are taken in an effort to provide you with o ptimal care, which includes your follow-up. Under all circumstances we always encourage you to contact your private physician who remains a resource for coordinating your care. When calling for follow-up care, please make the office aware that this follow-up is from your recent emergency room visit. If for any reason you are refused follow-up, please contact the [facility] Emergency Department at and asked to speak to the emergency department charge nurse. [facility] Specialty Care - Orthopedic Clinic Professional Building [address], [address] [place] [address] Dr Can, Orthopedist [facility] [address] [place] [address] Dr Meyer - Dr Polanco - Dr Wood [facility] at [facility] [address] [place] [address] [facility] [address] [place] [address] 1. Rest, ice, elevate the affected extremity. You can apply ice 15 minutes on, 15 minutes off. Keep the shoulder immobilizer on until follow up with the ortho pedic provider. 2. Tylenol and/or Ibuprofen as directed for pain management or discomfort. Take medication as prescribed. Your medication has been sent to [facility]. Caution when taking Percocet as this medication does cause drowsiness and sedation. Do not take this medication and operate any vehicles or heavy equipment. Caution when on this medication outside of the home. This medication does have the risk for increased falls. Make sure that you are moving slowly while taking this medication and take fall precaution as discussed. Percocet also contains Tylenol (Acetaminophen) so caution when taking additional Tylenol medication as be sure to take the dosing and did not further consideration as discussed. 3. Follow up with the Orthopedic provider as discussed. The number has been provided above for you to call and establish an appointment time. I encourage you to call today to set up a close follow-up with the orthopedic provider. Return to the ED as needed and as discussed. Sepsis Event Note (ED) - Evaluation Sepsis Screening Result: No Definite Risk - Focused Exam Vital Signs: Vital Signs Temp Pulse Resp BP Pulse Ox 01/15/21 12:44 71 18 96 01/15/21 11:49 97.5 F 74 20 155/59 H 97 - My Orders Last 24 Hours: My Active Orders 01/15/21 11:57 Sodium Chloride 0.9% [Saline Flush] 10 ml FLUSH ASDIRECTED PRN Sodium Chloride 0.9% [Saline Flush] 2.5 ml FLUSH ASDIRECTED PRN Saline Lock Insert [OM.PC] Stat 01/15/21 12:46 DME for Discharge [COMM] Stat - Assessment/Plan Last 24 Hours: My Active Orders 01/15/21 11:57 Sodium Chloride 0.9% [Saline Flush] 10 ml FLUSH ASDIRECTED PRN Sodium Chloride 0.9% [Saline Flush] 2.5 ml FLUSH ASDIRECTED PRN Saline Lock Insert [OM.PC] Stat 01/15/21 12:46 DME for Discharge [COMM] Stat
--- NOTE | 2021-01-15 13:20 | CR ---
Indication: Injury after fall Technique: Two views left Comparison: None Findings: Bones: Alignment is normal. Plate and screw hardware in the distal radius. No complication. No fractures or bone lesions. Joint spaces: Unremarkable. Soft tissues: Unremarkable. Impression: No acute abnormality or hardware complication. Dictated by Jany Steele MD @ 01/15/2021 1:19:01 PM (Electronically Signed)
--- NOTE | 2021-01-15 13:22 | CR ---
Indication: Injury after fall Technique: Two-view left humerus Comparison: None Findings: Bones: Alignment is normal. Minimally displaced fracture of the lateral aspect of the humeral head. Joint spaces: Unremarkable. Soft tissues: Unremarkable. Impression: Minimally displaced fracture of the lateral aspect of the humeral head. Dictated by Jany Steele MD @ 01/15/2021 1:20:59 PM (Electronically Signed)
[2021-01-15] MEDS ORDERED: Ondansetron 4 MG/2 ML SDV ONE (13:29)
[2021-01-15] MEDS ORDERED: Morphine 2 MG/ML SYRINGE IVPUSH ONE (14:13)
[2021-01-15] MEDS ORDERED: Promethazine 25 MG/ML SDV IM ONE (14:13)
[2021-01-15 15:32] VITALS: BP 147/65; PULSE 62
== END 2021-01-15 15:32 | disposition home or self-care (01) ==
LOC: MW.ED 11:11
DX: S42.202A Unspecified fracture of upper end of left humerus, initial encounter for closed fracture (principal); I10 Essential (primary) hypertension; K21.9 Gastro-esophageal reflux disease without esophagitis; M19.90 Unspecified osteoarthritis, unspecified site; E11.40 Type 2 diabetes mellitus with diabetic neuropathy, unspecified; E03.9 Hypothyroidism, unspecified; E66.9 Obesity, unspecified; Z68.39 Body mass index [BMI] 39.0-39.9, adult; Z88.0 Allergy status to penicillin; Z91.048 Other nonmedicinal substance allergy status; Z79.4 Long term (current) use of insulin; Z79.82 Long term (current) use of aspirin; Z79.899 Other long term (current) drug therapy; W23.0XXA Caught, crushed, jammed, or pinched between moving objects, initial encounter; Y93.01 Activity, walking, marching and hiking; Y92.512 Supermarket, store or market as the place of occurrence of the external cause
CPT/HCPCS: 73060; 73090; 96372; 96374; 96375; 96376; 99283; J1170; J1885; J2270; J2405; J2550

== ENCOUNTER 2024-09-07 21:19 | Emergency (ER) | payer MEDICARE, BC ==
[2024-09-07] MEDS ORDERED: Sodium Chloride 0.9% 10 ML Syringe FLUSH PRN ×2 (21:35→23:33)
[2024-09-07] MEDS ORDERED: Sodium Chloride 0.9% 2.5 ML Syringe FLUSH PRN ×2 (21:35→23:33)
[2024-09-07 21:55] LABS: BASOPHILS ABSOLUTE AUTO 0.04 K/uL (0.00-0.20); BASOPHILS PERCENT AUTO 0.2 % (0.0-1.0); EOSINOPHILS ABSOLUTE AUTO 0.01 K/uL (0.00-0.45); EOSINOPHILS PERCENT AUTO 0.1 % (0.0-6.0); IMMATURE GRAN ABSOLUTE AUTO 0.10 K/uL (0.00-0.05); IMMATURE GRAN PERCENT AUTO 0.5 % (0.0-0.4); LYMPHOCYTES ABSOLUTE AUTO 0.55 K/uL (1.00-4.80); LYMPHOCYTES PERCENT AUTO 3.0 % (24.0-44.0); MEAN PLATELET VOLUME 10.0 fL (9.4-12.3); MONOCYTES ABSOLUTE AUTO 0.88 K/uL (0.00-0.80); MONOCYTES PERCENT AUTO 4.7 % (0.0-8.0); NEUTROPHILS ABSOLUTE AUTO 17.05 K/uL (1.80-7.70); NEUTROPHILS PERCENT AUTO 91.5 % (41.0-71.0); NRBC ABSOLUTE 0.00 K/uL (0.00-0.02); NRBC PERCENT 0.0 /100WBC (0.0-0.2); PLATELET COUNT,PLT 327 K/uL (150-400); RED BLOOD CELL COUNT 3.97 M/uL (4.10-5.30); WHITE BLOOD CELL COUNT,WBC 18.63 K/uL (3.9-11.3)
[2024-09-07 22:23] LABS: LACTIC ACID 3.4 mmol/L (0.4-2.0)
[2024-09-07 22:26] LABS: A/G RATIO 1.2 (0.9-1.6); ALANINE AMINOTRANSFERASE,ALT 33 IU/L (14-63); ASPARTATE AMNIOTRANSFERASE,AST 47 IU/L (15-37); BILIRUBIN TOTAL 0.9 mg/dL (0.2-1.0); BLOOD UREA NITROGEN,BUN 44 mg/dL (7.0-18.0); CARBON DIOXIDE,CO2 8.0 mmol/L (21.0-32.0); CHLORIDE,CL 94 mmol/L (98-107); CREATININE 1.3 mg/dL (0.6-1.0); GLUCOSE RANDOM 385 mg/dL (74-106); POTASSIUM,K 4.5 mmol/L (3.5-5.1); PRO B-TYPE NATRIUR PEPT,BNPPRO 1051 pg/mL (0-125); PROTEIN TOTAL,TP 6.7 g/dL (6.4-8.2); SODIUM,NA 135 mmol/L (136-145)
[2024-09-07 22:27] LABS: ESTIMATED GFR 45 mL/min (>60)
[2024-09-07 22:52] LABS: PCO2 VENOUS 21.0 mmHG (41-51); PH,VENOUS 7.19 (7.32-7.43)
[2024-09-07 22:53] LABS: BASE EXCESS VENOUS -18.3 (-2.0-3.0); BICARBONATE,VENOUS 8.0 mEq/L (22-29); PO2 VENOUS 32.0 mmHG (35-45)
[2024-09-07] MEDS: Ondansetron 4 MG/2 ML SDV IVPUSH ONE (23:07)
[2024-09-07] MEDS: Lactated Ringers 1,000 ML IV ONE (23:07)
[2024-09-07] MEDS ORDERED: 50% Dextrose in Water 50 ML Syringe IVPUSH PRN (23:35)
[2024-09-07] MEDS: LORazepam 2 MG/ML SDV IVPUSH ONE (23:58)
[2024-09-08 00:23] LABS: GLUCOSE RANDOM 401.0 mg/dL (74-106); POTASSIUM,K 4.3 mmol/L (3.5-5.1)
[2024-09-08] MEDS: fentaNYL 50 MCG/ML SDV IVPUSH ONE (00:24)
[2024-09-08] MEDS: Diltiazem 25 MG/5 ML SDV IVPUSH ONE (00:27)
[2024-09-08 00:33] VITALS: PULSE 102
[2024-09-08 00:42] VITALS: BP 119/96
[2024-09-08] MEDS: Diltiazem 25 MG/5 ML SDV ONE (00:44)
== END 2024-09-08 01:00 ==
LOC: MW.ED 21:19
DX: E11.10 Type 2 diabetes mellitus with ketoacidosis without coma (principal); N17.9 Acute kidney failure, unspecified; I10 Essential (primary) hypertension; E11.40 Type 2 diabetes mellitus with diabetic neuropathy, unspecified; E03.9 Hypothyroidism, unspecified; K21.9 Gastro-esophageal reflux disease without esophagitis; E78.00 Pure hypercholesterolemia, unspecified; Z79.899 Other long term (current) drug therapy; Z79.84 Long term (current) use of oral hypoglycemic drugs; Z88.0 Allergy status to penicillin; Z91.048 Other nonmedicinal substance allergy status
CPT/HCPCS: 36415; 70450; 71045; 80053; 82009; 82803; 82947; 83605; 83735; 83880; 84100; 84132; 84484; 85025; 85379; 87040; 93005; 96361; 96374; 96375; 99285; A9270; J2060; J2405; J3010; J3490; J7030; J7120; 93010

== ENCOUNTER 2024-11-24 20:39 | Emergency (ER) | payer MEDICARE, BC ==
[2024-11-24] MEDS: Cetirizine 1 MG/ML Solution ML 120 ML Bottle PO ONE (22:03)
[2024-11-24 22:06] VITALS: BP 151/79; PULSE 68
== END 2024-11-24 22:05 | disposition home or self-care (01) ==
LOC: MW.ED 20:39
DX: S60.512A Abrasion of left hand, initial encounter (principal); I10 Essential (primary) hypertension; E78.00 Pure hypercholesterolemia, unspecified; E11.9 Type 2 diabetes mellitus without complications; Z88.0 Allergy status to penicillin; Z88.8 Allergy status to other drugs, medicaments and biological substances; Z79.4 Long term (current) use of insulin; Z79.890 Hormone replacement therapy; Z90.49 Acquired absence of other specified parts of digestive tract; X58.XXXA Exposure to other specified factors, initial encounter
CPT/HCPCS: 99283; A9270